=== PATIENT | male | born 1995 | race Asian ===

== ENCOUNTER 2023-11-12 15:36 | Emergency (ER) | payer OTHER ==
[~2023-11-12] VITALS: Ht 165.1 cm; Wt 83.9 kg
[2023-11-12 15:44] VITALS: BP_SYST 164; PULSE 71; RESP 18; TEMP 98.3; O2SAT 96
[2023-11-12] MEDS ORDERED: IBUP-1971 PO (16:30)
[2023-11-12 16:39] VITALS: BP_SYST 164; PULSE 71; RESP 18; TEMP 98.3; O2SAT 96
== END 2023-11-12 16:40 | disposition home or self-care (01) ==
LOC: EDSEX 15:36 → SED 15:36
DX: M67.873 Other specified disorders of tendon, right ankle and foot (principal); Z79.899 Other long term (current) drug therapy
CPT/HCPCS: 99283